=== PATIENT | female | born 1980 | race Caucasian/White ===

== ENCOUNTER → 2017-03-25 | Outpatient (CLI) | payer SELFPAY ==
--- NOTE | 2017-03-25 10:17 | EKG ---
[address] [address] Measurements Intervals [place] Rate: 82 P: 52 WV: 113 QRS: 57 QRSD: 89 T: 62 QT: 364 QTc: 403 Interpretive Statements SINUS RHYTHM WITH SHORT W[place] INTERVAL No previous ECG available for comparison Electronically Signed On 03-25-17 14:17:51 MDT by Prince Woodson [email or web address]
[2017-03-25 11:15] LABS: BASOPHILS # (AUTO) 0.02 10*3/UL; BASOPHILS % (AUTO) 0.5 % (0-1); EOSINOPHILS # (AUTO) 0.06 10*3/UL; EOSINOPHILS % (AUTO) 1.4 % (0-8); HEMATOCRIT 44.4 % (37.0-47.0); HEMOGLOBIN 15.7 g/dL (12.0-16.0); LYMPHOCYTES # (AUTO) 1.24 10*3/uL; MEAN CORPUSCULAR HEMOGLOBIN 27.7 PG (27-31); MEAN CORPUSCULAR HGB CONC 35.4 g/dL (33-37); MEAN CORPUSCULAR VOLUME 78.4 FL (81-99); MEAN PLATELET VOLUME 11.1 FL (7.4-12.2); MONOCYTES # (AUTO) 0.25 10*3/UL (0.3-0.8); MONOCYTES % (AUTO) 5.9 % (5-15); NEUTROPHILS # (AUTO) 2.65 10*3/UL; NEUTROPHILS % (AUTO) 62.7 % (50-80); RBC MORPHOLOGY COMMENT NORMAL MORPHOLOGY (NORM); RED BLOOD COUNT 5.66 10^6/uL (4.20-5.40); WBC MORPHOLOGY COMMENT NORMAL MORPHOLOGY (NORM)
[2017-03-25 11:16] LABS: PLATELET MORPHOLOGY COMMENT SEE COMMENTS (NORM)
[2017-03-25 11:29] LABS: BLOOD UREA NITROGEN 12 mg/dL (7-22); CALCIUM 10.2 mg/dL (8.7-10.7); EST GLOMERULAR FILTRATION > 60 (>60 ml/min/1.73m(2)); SERUM ALBUMIN 4.8 g/dL (3.5-4.8)
== END ==
LOC: MOB EKG 10:02
PROVIDERS: ATTEND Physician Assistant
DX: R42 Dizziness and giddiness (principal); R11.10 Vomiting, unspecified
CPT/HCPCS: 36415; 80053; 83690; 84443; 85025; 93005; 93010

== ENCOUNTER 2017-07-08 10:57 | Inpatient (IN) ==
[2017-07-08 11:37] LABS: BLOOD UREA NITROGEN 14 mg/dL (7-22); LIPASE 87 IU/L (23-300); SERUM ALBUMIN 4.6 g/dL (3.5-4.8)
[2017-07-08 11:41] LABS: BASOPHILS # (AUTO) 0.05 10*3/UL; BASOPHILS % (AUTO) 0.5 % (0-1); EOSINOPHILS # (AUTO) 0.16 10*3/UL; EOSINOPHILS % (AUTO) 1.8 % (0-8); Hematocrit [HCT] 44.9 % (37.0-47.0); Hemoglobin [HGB] 15.3 g/dL (12.0-16.0); LYMPHOCYTES # (AUTO) 1.42 10*3/uL; MEAN CORPUSCULAR HEMOGLOBIN 27.6 PG (27-31); MEAN CORPUSCULAR HGB CONC 34.1 g/dL (33-37); MONOCYTES # (AUTO) 0.48 10*3/UL (0.3-0.8); MONOCYTES % (AUTO) 5.3 % (5-15); NEUTROPHILS # (AUTO) 7.01 10*3/UL; NEUTROPHILS % (AUTO) 76.7 % (50-80); RED BLOOD COUNT 5.54 10^6/uL (4.20-5.40)
[2017-07-08 12:12] LABS: PLATELET MORPHOLOGY COMMENT NORMAL MORPHOLOGY (NORM); RBC MORPHOLOGY COMMENT NORMAL MORPHOLOGY (NORM); WBC MORPHOLOGY COMMENT NORMAL MORPHOLOGY (NORM)
[2017-07-08] MEDS ORDERED: LIDOCAINE W/ SODIUM BICARB 0.5 ML SYR SUBD PRN (14:30)
--- NOTE | 2017-07-08 14:35 | PDOC ---
History and Physical - History of Present Illness Date and Time of Service: 07/08/2017 12:45 PM Chief Complaint: Abdominal pain and nausea 5 days duration. Also diarrhea the last 5 days. History of Present Illness: This is a 37 years old female with medical history significant for history of GERD with history of previous admission in 2011 she had pneumoperitoneum at that time she had expiratory laparotomy however the site of perforation was not found, who presented to the urgent clinic with abdominal pain felt in the periumbilical area varies in intensity associated with nausea but no vomiting. There is also diarrhea she had liquid diarrhea no blood. No fever. Because of all the symptoms she came into the walk-in clinic she had a CT done of the abdomen and this showed partial bowel obstruction and hence the admission. Patient is denying other symptoms there is no chest pain, no shortness of breath no dysuria. She said she never had bowel obstruction before. Past Medical History Medical History: 1. GERD. 2. Previous admission 2011 for pneumoperitoneum had exploratory laparotomy and no site of perforation was found Surgical History: 1. Expiratory lobectomy for pneumoperitoneum in 2011. 2. Cholecystectomy. 3. Bilateral oophorectomy with hysterectomy Family History: Reviewed an Not Pertinent Past Social History: Doesn't smoke, doesn't drink or drugs. Tobacco Use: Never Smoker Substance Use Type: None Alcohol Use: None Medication / Allergies Home Medications: Home Medications Medication Instructions Recorded Confirmed Type Sertraline HCl 1 tab PO DAILY #30 tab 11/11/16 [facility] Pantoprazole Sodium [Protonix] 40 mg PO DAILY #60 tab 03/21/17 [facility] Quetiapine Fumarate [Seroquel] 100 mg PO QHS #60 tab 03/21/17 [facility] Meclizine HCl 25 mg PO TID #15 tab 03/25/17 [facility] Zolpidem Tartrate [Ambien] 1 tab PO DAILY #30 tab 06/24/17 [facility] Allergies/Adverse Reactions: Allergies Allergy/AdvReac Type Severity Reaction Status Date / Time Penicillins Allergy Severe Anaphylaxis Unverified 07/08/17 10:35 Review of Systems - Review of Systems All Systems: Reviewed & No Additional Complaints Except as Stated Exam - General General Appearance: POSITIVE: No Acute Distress, Cooperative, Obese - Head Head Exam: POSITIVE: Normal Inspection, Atraumatic - Eye Eye Exam: POSITIVE: Normal Appearance - ENT ENT Exam: POSITIVE: Normal Exam - Neck Neck Exam: POSITIVE: Normal Inspection - Respiratory Respiratory Exam: POSITIVE: Clear to Auscultation - Bilaterally - Cardiovascular Cardiovascular Exam: POSITIVE: RRR - GI/Abdominal GI/Abdominal Exam: POSITIVE: Soft, No Organomegaly Additional GI/Abdominal Exam Details: Bowel sounds are distant. There is tenderness in the periumbilical area - Rectal Rectal Exam: POSITIVE: Deferred - External Exam: POSITIVE: Deferred Exam: POSITIVE: Deferred - Extremities Extremities Exam: POSITIVE: Normal Inspection - Back Back Exam: POSITIVE: Normal Inspection - Neurological Neurological Exam: POSITIVE: Alert, Oriented x 3, CN II-XII Intact, No Facial Droop, Speech Intact / Clear, Moves All Extremities Equally - Psychiatric Psychiatric Exam: POSITIVE: Normal Affect - Integumentary Integumentary Exam: POSITIVE: Normal Color Results - Labs CBC and BMP: 07/08/17 11:13 07/08/17 11:13 Labs - Last 24 Hours: Laboratory Results 07/08/17 Range/Units 11:13 WBC 9.13 (4.8-10.8) 10^3/uL RBC 5.54 H (4.20-5.40) 10^6/uL Hgb 15.3 (12.0-16.0) g/dL Hct 44.9 (37.0-47.0) % MCV 81.0 (81-99) FL MCH 27.6 (27-31) PG MCHC 34.1 (33-37) g/dL RDW Std Deviation 40.9 (39-50) fL RDW Coeff of Ingrid 14.0 (11.5-14.5) % Plt Count 256 (140-350) 10*3/uL MPV 11.0 (7.4-12.2) FL Immature Gran % (Auto) 0.1 (0-5) % Neut % (Auto) 76.7 (50-80) % Lymph % (Auto) 15.6 (10-50) % [place] % (Auto) 5.3 (5-15) % Eos % (Auto) 1.8 (0-8) % Baso % (Auto) 0.5 (0-1) % Immature Gran # (Auto) 0.01 10*3/UL Neut # (Auto) 7.01 10*3/UL Lymph # (Auto) 1.42 10*3/uL [place] # (Auto) 0.48 (0.3-0.8) 10*3/UL Eos # (Auto) 0.16 10*3/UL Baso # (Auto) 0.05 10*3/UL WBC Morphology Comment Normal morphology (NORM) Plt Morphology Comment Normal morphology (NORM) RBC Morph Comment Normal morphology (NORM) Sodium 138 (135-145) meq/L Potassium 4.2 (3.8-5.2) meq/L Chloride 106 (98-112) meq/L Carbon Dioxide 17 L (23-33) meq/L Anion Gap 15 (5-20) BUN 14 (7-22) mg/dL Creatinine 0.8 (0.50-1.20) mg/dL Estimated GFR > 60 (>60 ml/min/1.73m(2)) BUN/Creatinine Ratio 17.50 (6-20) Glucose 111 H (78-110) mg/dL Calculated Osmolality 287.0 (267-292) mOsm/kg Calcium 10.2 (8.7-10.7) mg/dL Total Bilirubin 0.7 (0.3-1.2) mg/dL AST 40 H (8-39) IU/L ALT 59 H (9-52) IU/L Alkaline Phosphatase 125 (38-126) IU/L C-Reactive Protein 1.0 H (0.0-0.9) mg/dL Total Protein 8.0 (6.1-8.0) g/dL Albumin 4.6 (3.5-4.8) g/dL Globulin 3.4 (2.50-4.10) g/dL Albumin/Globulin Ratio 1.30 (1.3-2.0) mg/g Lipase 87 (23-300) IU/L - Imaging Status: Report Reviewed by Me ( CT of the abdomen showed low to moderate grade partial small bowel obstruction right at the junction betweenThe distal jejunum and the proximal ileum and this more likely secondary to adhesions. There is a trace amount of fluid in the cul-de-sac.) Assessment and Plan - Patient Problems (1) Partial small bowel obstruction Current Visit: Yes Status: Acute Comment: We will put her on IV fluids, antiemetics and pain medications. We will insert NG tube. I will order repeat labs for the morning and x-ray. Dr. Dumont will see her.
[2017-07-08] MEDS ORDERED: MORPHINE SULFATE 2 MG/1 ML IVP PRN (14:36)
--- NOTE | 2017-07-08 14:52 | DI ---
CT ABDOMEN SCAN WITH IV CONTRAST, 07/08/2017 11:16 AM : Clinical History: Abdominal pain. Previous Exam: 10/06/2012. Scans are performed from the lower lung bases through the liver and kidneys with IV contrast. 75 ml o f Isovue 300 was injected IV. No oral or rectal contrast was ordered. The lung bases are clear. There is fluid in the distal esophagus as well as in the stomach and small bowel. The liver is normal. The patient is status post cholecystectomy and the common bile duct measu res 5-6 mm. There is no abnormality of the spleen, pancreas, and adrenal glands. Both kidneys are nor mal in size, shape, position and contour. There is no hydronephrosis or hydroureter. No renal or uret eral calculi are present. There are no abnormal retrocrural or periaortic nodes. No ascites is presen t. READING: Normal CT abdomen scan. CT PELVIS SCAN WITH IV CONTRAST, 07/08/2017 11:16 AM: Clinical History: See above. Previous Exam: 10/06/2012. Scans are performed from just superior to the umbilicus to the symphysis pubis with IV contrast. This is the same bolus of contrast used for the CT scans of the abdomen. Scans through the lower abdomen and pelvis show no masses. There is a small amount of fluid in the cu l-de-sac. The appendix is normal. The small bowel from the duodenum approximately to the junction of the jejunum with the ileum is mildly dilated. In the midline just inferior to the umbilicus is a cheryl p angulation of nondistended small bowel contiguous with some mildly dilated loops of small bowel. Th is probably represents the focus of the projection most likely secondary to an effusion. The distal s mall bowel from this point on is normal. The colon is also normal. There is a small umbilical hernia through which only mesenteric fat has herniated. The patient is status post hysterectomy. Neither ova ry is visualized and presumably the patient is status post bilateral salpingo-oophorectomy. READIN. Low to moderate grade partial small bowel obstruction right at the junction between the distal je junum and the proximal ileum and this most likely secondary to adhesions. There is a trace amount of fluid in the cul-de-sac. 2. Status post hysterectomy and bilateral salpingo-oophorectomy.
[2017-07-08] MEDS: ONDANSETRON 4 MG/2 ML VIAL IVP PRN (15:26)
--- NOTE | 2017-07-08 16:06 | CONSULT ---
Consult Note - Consult Consult Date: 07/08/17 Reason for Consult: PreOp Consulation : General Surgery Requesting Physician: Dr. Call Primary Care Provider: UNKNOWN UNKNOWN - History of Present Illness History of Present Illness: This is a 37-year-old female who has a 4-5 day history of abdominal pain. She feels nauseated but not throwing up. She states that she feels like if she can drop she'll feel a lot better. She has not passed any flatus and last 4 days. States she has not had a real bowel movement in 4 days. She is is passing watery stools. She states that her abdomen is distended Past Medical History Medical History: 1. GERD. 2. Previous admission 2011 for pneumoperitoneum had exploratory laparotomy and no site of perforation was found Surgical History: 1. Expiratory lobectomy for pneumoperitoneum in 2011. 2. Cholecystectomy. 3. Bilateral oophorectomy with hysterectomy Family History: Reviewed an Not Pertinent Past Social History: Doesn't smoke, doesn't drink or drugs. Tobacco Use: Never Smoker Substance Use Type: None Alcohol Use: None Medication / Allergies Home Medications: Home Medications Medication Instructions Recorded Confirmed Type Sertraline HCl 1 tab PO DAILY #30 tab 11/11/16 [facility] Pantoprazole Sodium [Protonix] 40 mg PO DAILY #60 tab 03/21/17 Clinic Quetiapine Fumarate [Seroquel] 100 mg PO QHS #60 tab 03/21/17 Clinic Meclizine HCl 25 mg PO TID #15 tab 03/25/17 Clinic Zolpidem Tartrate [Ambien] 1 tab PO DAILY #30 tab 06/24/17 Clinic Allergies/Adverse Reactions: Allergies Allergy/AdvReac Type Severity Reaction Status Date / Time Penicillins Allergy Severe Anaphylaxis Unverified 07/08/17 10:35 Exam - Vitals Vital Signs: Vital Signs Temperature 97.2 F Temperature Source Temporal Artery Scan Pulse Rate [Pulse Oximeter] 101 Pulse Rate [Apical] 98 Respiratory Rate 18 Blood Pressure [Right Arm] 114/85 Pulse Ox 96 Oxygen Delivery Method Room Air Height 5 ft 1 in Weight 73.301 kg - General General Appearance: POSITIVE: No Acute Distress, Cooperative - Eye Eye Exam: POSITIVE: PERRL, EOMI - GI/Abdominal GI/Abdominal Exam: POSITIVE: Distended Additional GI/Abdominal Exam Details: Patient abdomen is distended she has high-pitched bowel sounds. Abdomen is soft nontender. No rigidity or rebound no peritoneal signs Results - Labs CBC and BMP: 07/08/17 11:13 07/08/17 11:13 Labs - Last 24 Hours: Laboratory Results 07/08/17 Range/Units 11:13 WBC 9.13 (4.8-10.8) 10^3/uL RBC 5.54 H (4.20-5.40) 10^6/uL Hgb 15.3 (12.0-16.0) g/dL Hct 44.9 (37.0-47.0) % MCV 81.0 (81-99) FL MCH 27.6 (27-31) PG MCHC 34.1 (33-37) g/dL RDW Std Deviation 40.9 (39-50) fL RDW Coeff of Ingrid 14.0 (11.5-14.5) % Plt Count 256 (140-350) 10*3/uL MPV 11.0 (7.4-12.2) FL Immature Gran % (Auto) 0.1 (0-5) % Neut % (Auto) 76.7 (50-80) % Lymph % (Auto) 15.6 (10-50) % [place] % (Auto) 5.3 (5-15) % Eos % (Auto) 1.8 (0-8) % Baso % (Auto) 0.5 (0-1) % Immature Gran # (Auto) 0.01 10*3/UL Neut # (Auto) 7.01 10*3/UL Lymph # (Auto) 1.42 10*3/uL [place] # (Auto) 0.48 (0.3-0.8) 10*3/UL Eos # (Auto) 0.16 10*3/UL Baso # (Auto) 0.05 10*3/UL WBC Morphology Comment Normal morphology (NORM) Plt Morphology Comment Normal morphology (NORM) RBC Morph Comment Normal morphology (NORM) Sodium 138 (135-145) meq/L Potassium 4.2 (3.8-5.2) meq/L Chloride 106 (98-112) meq/L Carbon Dioxide 17 L (23-33) meq/L Anion Gap 15 (5-20) BUN 14 (7-22) mg/dL Creatinine 0.8 (0.50-1.20) mg/dL Estimated GFR > 60 (>60 ml/min/1.73m(2)) BUN/Creatinine Ratio 17.50 (6-20) Glucose 111 H (78-110) mg/dL Calculated Osmolality 287.0 (267-292) mOsm/kg Calcium 10.2 (8.7-10.7) mg/dL Total Bilirubin 0.7 (0.3-1.2) mg/dL AST 40 H (8-39) IU/L ALT 59 H (9-52) IU/L Alkaline Phosphatase 125 (38-126) IU/L C-Reactive Protein 1.0 H (0.0-0.9) mg/dL Total Protein 8.0 (6.1-8.0) g/dL Albumin 4.6 (3.5-4.8) g/dL Globulin 3.4 (2.50-4.10) g/dL Albumin/Globulin Ratio 1.30 (1.3-2.0) mg/g Lipase 87 (23-300) IU/L Assessment and Plan - Patient Problems (1) Partial small bowel obstruction Current Visit: Yes Status: Acute - Assessment / Plan Additional Assessment/Plan Details: At this point, I think the patient needs have an NG tube and decompression of the abdomen. There is a high chance that this can resolve on its own. Patient be reevaluated in the morning. She does not have acute surgical abdomen therefore does not have to have emergency surgery.
[2017-07-08] MEDS: HYDROmorphone 2 MG/1 ML IVP PRN ×3 (17:17→23:03)
[2017-07-08] MEDS ORDERED: Metoclopramide Inj 10 MG/2 ML VIAL IVP PRN (17:36)
[2017-07-08] MEDS: Pantoprazole Inj 40 MG in Normal Saline Flush 10 ML IVP SCH (22:12)
[2017-07-09] MEDS: HYDROmorphone 2 MG/1 ML IVP PRN ×3 (05:01→10:09)
[2017-07-09 05:09] LABS: BASOPHILS # (AUTO) 0.02 10*3/UL; BASOPHILS % (AUTO) 0.3 % (0-1); EOSINOPHILS # (AUTO) 0.16 10*3/UL; EOSINOPHILS % (AUTO) 2.5 % (0-8); Hematocrit [HCT] 41.6 % (37.0-47.0); Hemoglobin [HGB] 14.1 g/dL (12.0-16.0); LYMPHOCYTES # (AUTO) 1.32 10*3/uL; MEAN CORPUSCULAR HEMOGLOBIN 28.3 PG (27-31); MEAN CORPUSCULAR HGB CONC 33.9 g/dL (33-37); MEAN CORPUSCULAR VOLUME 83.4 FL (81-99); MEAN PLATELET VOLUME 10.9 FL (7.4-12.2); MONOCYTES # (AUTO) 0.41 10*3/UL (0.3-0.8); MONOCYTES % (AUTO) 6.4 % (5-15); NEUTROPHILS # (AUTO) 4.53 10*3/UL; NEUTROPHILS % (AUTO) 70.1 % (50-80); RED BLOOD COUNT 4.99 10^6/uL (4.20-5.40)
[2017-07-09 05:16] LABS: PLATELET MORPHOLOGY COMMENT NORMAL MORPHOLOGY (NORM); RBC MORPHOLOGY COMMENT NORMAL MORPHOLOGY (NORM); WBC MORPHOLOGY COMMENT NORMAL MORPHOLOGY (NORM)
[2017-07-09 05:22] LABS: BLOOD UREA NITROGEN 11 mg/dL (7-22); BUN/CREATININE RATIO 13.75 (6-20); SERUM ALBUMIN 4.1 g/dL (3.5-4.8)
--- NOTE | 2017-07-09 09:18 | DI ---
HISTORY: Abdominal pain. Obstruction. COMPARISON: 07/08/2017. FINDINGS/IMPRESSION: Flat and upright views of the abdomen are submitted. An enteric tube courses midline with the sidepo rt beyond the gastroesophageal junction and the tip projecting over the left upper quadrant. There i s stool and gas in the distribution of the colon. There are no dilated loops of bowel or air-fluid l evels. No free intraperitoneal air is detected. There are no suspicious calcific densities in the d istribution of the kidneys or renal or collecting system. A phlebolith projects over the left lower pelvis. The lung bases are clear. The cardiomediastinal silhouette is within normal limits. Osseous structures are normal for age. The soft tissues are unremarkable.
[2017-07-09] MEDS: NORMAL SALINE 10 ML SYRINGE FLUSH IVP PRN (10:09)
[2017-07-09] MEDS: ONDANSETRON 4 MG/2 ML VIAL IVP PRN ×2 (10:09→15:48)
[2017-07-09] MEDS ORDERED: Acetaminophen 1000mg Inj 1,000 MG in Premix 1 BAG IV ONE (10:16)
--- NOTE | 2017-07-09 12:27 | PDOC(PROG) ---
Date and Time of Service: 07/10/2017 at 1220 Interval History: Patient is still complaining of abdominal pain. She got nauseated which went down for x-rays but has not thrown up. She is claims she is not passing gas. Objective : Data - Labs CBC and BMP: 07/09/17 04:25 07/09/17 04:25 Labs - Last 24 Hours: Laboratory Results 07/09/17 Range/Units 04:25 WBC 6.45 (4.8-10.8) 10^3/uL RBC 4.99 (4.20-5.40) 10^6/uL Hgb 14.1 (12.0-16.0) g/dL Hct 41.6 (37.0-47.0) % MCV 83.4 (81-99) FL MCH 28.3 (27-31) PG MCHC 33.9 (33-37) g/dL RDW Std Deviation 42.7 (39-50) fL RDW Coeff of Ingrid 14.2 (11.5-14.5) % Plt Count 210 (140-350) 10*3/uL MPV 10.9 (7.4-12.2) FL Immature Gran % (Auto) 0.2 (0-5) % Neut % (Auto) 70.1 (50-80) % Lymph % (Auto) 20.5 (10-50) % [place] % (Auto) 6.4 (5-15) % Eos % (Auto) 2.5 (0-8) % Baso % (Auto) 0.3 (0-1) % Immature Gran # (Auto) 0.01 10*3/UL Neut # (Auto) 4.53 10*3/UL Lymph # (Auto) 1.32 10*3/uL [place] # (Auto) 0.41 (0.3-0.8) 10*3/UL Eos # (Auto) 0.16 10*3/UL Baso # (Auto) 0.02 10*3/UL WBC Morphology Comment Normal morphology (NORM) Plt Morphology Comment Normal morphology (NORM) RBC Morph Comment Normal morphology (NORM) Sodium 142 (135-145) meq/L Potassium 3.9 (3.8-5.2) meq/L Chloride 107 (98-112) meq/L Carbon Dioxide 23 (23-33) meq/L Anion Gap 12 (5-20) BUN 11 (7-22) mg/dL Creatinine 0.8 (0.50-1.20) mg/dL Estimated GFR > 60 (>60 ml/min/1.73m(2)) BUN/Creatinine Ratio 13.75 (6-20) Glucose 85 (78-110) mg/dL Calculated Osmolality 291.0 (267-292) mOsm/kg Calcium 9.3 (8.7-10.7) mg/dL Total Bilirubin 0.8 (0.3-1.2) mg/dL AST 35 (8-39) IU/L ALT 58 H (9-52) IU/L Alkaline Phosphatase 99 (38-126) IU/L Total Protein 7.1 (6.1-8.0) g/dL Albumin 4.1 (3.5-4.8) g/dL Globulin 3.0 (2.50-4.10) g/dL Albumin/Globulin Ratio 1.30 (1.3-2.0) mg/g - Vital Signs Vital Signs and I&O: Vital Signs - Last Taken Temperature 98.2 F 07/09/17 11:19 Pulse Rate 103 H 07/09/17 11:19 Respiratory Rate 16 07/09/17 11:19 Blood Pressure 107/72 07/09/17 11:19 Pulse Ox 99 07/09/17 11:19 Intake and Output (24hr x 4 totals) 07/07/17 07/08/17 07/09/17 07/10/17 05:59 05:59 05:59 05:59 Intake Total 347 Output Total 1125 Balance -778 Objective : Exam - General General Appearance: No Acute Distress, Cooperative - Head Head Exam: Normal Inspection, Normocephalic, Atraumatic - Eye Eye Exam: Normal Appearance, PERRL, EOMI - GI/Abdominal GI/Abdominal Exam: Non Tender, Soft, Distended Assessment and Plan - Patient Problems (1) Partial small bowel obstruction Current Visit: Yes Status: Acute - Assessment / Plan Additional Assessment/Plan Details: We will have Gastrografin placed on the NG tube and do serial x-rays to see if the diagnosis through.
[2017-07-09] MEDS: MORPHINE SULFATE 4 MG/1 ML IVP PRN ×4 (15:45→22:59)
--- NOTE | 2017-07-09 16:26 | PDOC(PROG) ---
Date and Time of Service: [id number], 11 AM Interval History: no chest pain, SOB, nausea or vomiting. still complaints of abdominal pain. wants to try liquids today. Objective : Data - Labs CBC and BMP: 07/09/17 04:25 07/09/17 04:25 Labs - Last 24 Hours: Laboratory Results 07/09/17 Range/Units 04:25 WBC 6.45 (4.8-10.8) 10^3/uL RBC 4.99 (4.20-5.40) 10^6/uL Hgb 14.1 (12.0-16.0) g/dL Hct 41.6 (37.0-47.0) % MCV 83.4 (81-99) FL MCH 28.3 (27-31) PG MCHC 33.9 (33-37) g/dL RDW Std Deviation 42.7 (39-50) fL RDW Coeff of Ingrid 14.2 (11.5-14.5) % Plt Count 210 (140-350) 10*3/uL MPV 10.9 (7.4-12.2) FL Immature Gran % (Auto) 0.2 (0-5) % Neut % (Auto) 70.1 (50-80) % Lymph % (Auto) 20.5 (10-50) % [place] % (Auto) 6.4 (5-15) % Eos % (Auto) 2.5 (0-8) % Baso % (Auto) 0.3 (0-1) % Immature Gran # (Auto) 0.01 10*3/UL Neut # (Auto) 4.53 10*3/UL Lymph # (Auto) 1.32 10*3/uL [place] # (Auto) 0.41 (0.3-0.8) 10*3/UL Eos # (Auto) 0.16 10*3/UL Baso # (Auto) 0.02 10*3/UL WBC Morphology Comment Normal morphology (NORM) Plt Morphology Comment Normal morphology (NORM) RBC Morph Comment Normal morphology (NORM) Sodium 142 (135-145) meq/L Potassium 3.9 (3.8-5.2) meq/L Chloride 107 (98-112) meq/L Carbon Dioxide 23 (23-33) meq/L Anion Gap 12 (5-20) BUN 11 (7-22) mg/dL Creatinine 0.8 (0.50-1.20) mg/dL Estimated GFR > 60 (>60 ml/min/1.73m(2)) BUN/Creatinine Ratio 13.75 (6-20) Glucose 85 (78-110) mg/dL Calculated Osmolality 291.0 (267-292) mOsm/kg Calcium 9.3 (8.7-10.7) mg/dL Total Bilirubin 0.8 (0.3-1.2) mg/dL AST 35 (8-39) IU/L ALT 58 H (9-52) IU/L Alkaline Phosphatase 99 (38-126) IU/L Total Protein 7.1 (6.1-8.0) g/dL Albumin 4.1 (3.5-4.8) g/dL Globulin 3.0 (2.50-4.10) g/dL Albumin/Globulin Ratio 1.30 (1.3-2.0) mg/g - Imaging X-Ray Status: Image Reviewed by Me (KUB exam appears normal with no evidence for obstruction.) Objective : Exam - General General Appearance: No Acute Distress, Cooperative Additional General Exam Details: Vital Signs - Last Taken Temperature 97.3 F 07/09/17 15:51 Pulse Rate 92 07/09/17 15:51 Respiratory Rate 14 07/09/17 15:51 Blood Pressure 101/67 07/09/17 15:51 Pulse Ox 91 07/09/17 15:51 - Eye Eye Exam: No Scleral Icterus - ENT ENT Exam: Mucous Membranes Moist - Respiratory Respiratory Exam: Clear to Auscultation - Bilaterally, Breathing Non Labored - Cardiovascular Cardiovascular Exam: RRR, No Murmur, No Clicks, No Gallops, No Rubs, No JVD - GI/Abdominal GI/Abdominal Exam: Non Tender, Non Distended, Soft, Hypoactive Bowel Sounds - Extremities Extremities Exam: No Clubbing Present, No Edema Present, No Cyanosis Present - Neurological Neurological Exam: Alert, Oriented x 3, No Facial Droop, Speech Intact / Clear, Moves All Extremities Equally Assessment and Plan - Patient Problems (1) Partial small bowel obstruction Current Visit: Yes Status: Acute (2) Dehydration Current Visit: Yes Status: Acute - Assessment / Plan Additional Assessment/Plan Details: continue IV fluids clear liquids/ water discussed with surgery, and we feel it is best to get a gastrograffin study and image small bowel with time to see if contrast goes through check labs tomorrow
--- NOTE | 2017-07-09 16:49 | DI ---
CLINICAL HISTORY: Small bowel obstruction. PREVIOUS EXAM: None at this facility. TECHNIQUE: Four views of the abdomen are obtained. FINDINGS: Images demonstrate contrast within the stomach on the second third and fourth images. Ther e was extension into the duodenal sweep. There is also contrast noted throughout the small bowel. There is no evidence of high-grade spinal ezio wel obstruction. There is air and stool noted within the colon. IMPRESSION: 1. No acute intra-abdominal pathology.
--- NOTE | 2017-07-09 18:24 | DI ---
CLINICAL HISTORY: Small bowel obstruction. PREVIOUS EXAM: Same date 4 hours prior. FINDINGS: Four-hour view after oral administration of contrast demonstrates contrast into and throug h the majority of the colon. There is no evidence of high-grade obstruction. Skeletal structures are unremarkable. IMPRESSION: 1. Advancement of contrast all the way through the colon.
[2017-07-09] MEDS: Pantoprazole Inj 40 MG in Normal Saline Flush 10 ML IVP SCH (20:19)
[2017-07-10] MEDS: MORPHINE SULFATE 4 MG/1 ML IVP PRN (02:56)
[2017-07-10] MEDS ORDERED: Acetaminophen 1000mg Inj 1,000 MG in Premix 1 BAG IV ONE ×2 (03:05→13:32)
[2017-07-10 04:45] LABS: BASOPHILS # (AUTO) 0.02 10*3/UL; BASOPHILS % (AUTO) 0.2 % (0-1); EOSINOPHILS # (AUTO) 0.01 10*3/UL; EOSINOPHILS % (AUTO) 0.1 % (0-8); Hematocrit [HCT] 36.7 % (37.0-47.0); Hemoglobin [HGB] 12.1 g/dL (12.0-16.0); MEAN CORPUSCULAR HEMOGLOBIN 27.7 PG (27-31); MEAN PLATELET VOLUME 10.9 FL (7.4-12.2); MONOCYTES # (AUTO) 0.38 10*3/UL (0.3-0.8); MONOCYTES % (AUTO) 4.1 % (5-15); NEUTROPHILS # (AUTO) 8.13 10*3/UL; NEUTROPHILS % (AUTO) 88.7 % (50-80); RED BLOOD COUNT 4.37 10^6/uL (4.20-5.40)
[2017-07-10 04:52] LABS: BLOOD UREA NITROGEN 7 mg/dL (7-22); MAGNESIUM 1.7 mg/dL (1.6-2.4); SERUM ALBUMIN 3.5 g/dL (3.5-4.8)
[2017-07-10 05:05] LABS: PLATELET MORPHOLOGY COMMENT NORMAL MORPHOLOGY (NORM); RBC MORPHOLOGY COMMENT NORMAL MORPHOLOGY (NORM); WBC MORPHOLOGY COMMENT NORMAL MORPHOLOGY (NORM)
--- NOTE | 2017-07-10 08:09 | DI ---
HISTORY: Possible bowel obstruction. COMPARISON: 07/09/2017. FINDINGS: Contrast is seen filling the large bowel which appears normal in caliber. IMPRESSION: 1. Contrast is seen filling the large bowel which appears normal in caliber.
[2017-07-10] MEDS: NORMAL SALINE 10 ML SYRINGE FLUSH IVP PRN (11:13)
[2017-07-10] MEDS: ONDANSETRON 4 MG/2 ML VIAL IVP PRN (11:13)
[2017-07-10] MEDS ORDERED: ACETAMINOPHEN 325 MG TABLET PO PRN (11:39)
--- NOTE | 2017-07-10 11:43 | PDOC(PROG) ---
Date and Time of Service: 07 10 2017 at 1145 Interval History: Patient is passing gas. Discomfort in abdomen is less Objective : Data - Labs CBC and BMP: 07/10/17 04:00 07/10/17 04:00 Labs - Last 24 Hours: Laboratory Results 07/10/17 Range/Units 04:00 WBC 9.18 (4.8-10.8) 10^3/uL RBC 4.37 (4.20-5.40) 10^6/uL Hgb 12.1 (12.0-16.0) g/dL Hct 36.7 L (37.0-47.0) % MCV 84.0 (81-99) FL MCH 27.7 (27-31) PG MCHC 33.0 (33-37) g/dL RDW Std Deviation 41.5 (39-50) fL RDW Coeff of Ingrid 13.9 (11.5-14.5) % Plt Count 196 (140-350) 10*3/uL MPV 10.9 (7.4-12.2) FL Immature Gran % (Auto) 0.4 (0-5) % Neut % (Auto) 88.7 H (50-80) % Lymph % (Auto) 6.5 L (10-50) % [place] % (Auto) 4.1 L (5-15) % Eos % (Auto) 0.1 (0-8) % Baso % (Auto) 0.2 (0-1) % Immature Gran # (Auto) 0.04 10*3/UL Neut # (Auto) 8.13 10*3/UL Lymph # (Auto) 0.60 10*3/uL [place] # (Auto) 0.38 (0.3-0.8) 10*3/UL Eos # (Auto) 0.01 10*3/UL Baso # (Auto) 0.02 10*3/UL WBC Morphology Comment Normal morphology (NORM) Plt Morphology Comment Normal morphology (NORM) RBC Morph Comment Normal morphology (NORM) Sodium 137 (135-145) meq/L Potassium 4.5 (3.8-5.2) meq/L Chloride 105 (98-112) meq/L Carbon Dioxide 21 L (23-33) meq/L Anion Gap 11 (5-20) BUN 7 (7-22) mg/dL Creatinine 0.7 (0.50-1.20) mg/dL Estimated GFR > 60 (>60 ml/min/1.73m(2)) BUN/Creatinine Ratio 10.00 (6-20) Glucose 90 (78-110) mg/dL Calculated Osmolality 281.0 (267-292) mOsm/kg Lactic Acid 1.1 (0.70-2.10) MMOL/L Calcium 8.9 (8.7-10.7) mg/dL Magnesium 1.7 (1.6-2.4) mg/dL Total Bilirubin 1.0 (0.3-1.2) mg/dL AST 22 (8-39) IU/L ALT 44 (9-52) IU/L Alkaline Phosphatase 83 (38-126) IU/L Total Protein 6.2 (6.1-8.0) g/dL Albumin 3.5 (3.5-4.8) g/dL Globulin 2.7 (2.50-4.10) g/dL Albumin/Globulin Ratio 1.20 L (1.3-2.0) mg/g - Vital Signs Vital Signs and I&O: Vital Signs - Last Taken Temperature 97.8 F 07/10/17 11:10 Pulse Rate 88 07/10/17 11:10 Respiratory Rate 18 07/10/17 11:10 Blood Pressure 115/77 07/10/17 11:10 Pulse Ox 97 07/10/17 11:10 Intake and Output (24hr x 4 totals) 07/08/17 07/09/17 07/10/17 07/11/17 05:59 05:59 05:59 05:59 Intake Total 347 2048 150 Output Total 1125 1200 800 Balance -778 848 -903 Objective : Exam - GI/Abdominal GI/Abdominal Exam: Normal Bowel Sounds, Non Tender, Non Distended, Soft Assessment and Plan - Patient Problems (1) Partial small bowel obstruction Current Visit: Yes Status: Acute - Assessment / Plan Additional Assessment/Plan Details: Patient overall is doing very well. X-ray shows dye goes up into the colon. She has stool in air seen throughout the colon. I think she can advance her diet and switch over to oral medications. Saline lock her IV
[2017-07-10] MEDS ORDERED: Promethazine Tab 25 MG TAB PO PRN (12:51)
[2017-07-10] MEDS ORDERED: Metoclopramide Inj 10 MG/2 ML VIAL IVP ONE (13:31)
--- NOTE | 2017-07-10 14:00 | PDOC(PROG) ---
Date and Time of Service: 07/10/2017, 1359 Interval History: No chest pain, shortness breath, but still complains of nausea and states her abdominal pain is starting to get worse. She is passing gas today. X-ray results with gastric graph and showed extravasation of contrast into the large intestine with no evidence of obstruction. Pain is mostly right sided and upper quadrant. Objective : Data - Labs CBC and BMP: 07/10/17 04:00 07/10/17 04:00 Labs - Last 24 Hours: Laboratory Results 07/10/17 Range/Units 04:00 WBC 9.18 (4.8-10.8) 10^3/uL RBC 4.37 (4.20-5.40) 10^6/uL Hgb 12.1 (12.0-16.0) g/dL Hct 36.7 L (37.0-47.0) % MCV 84.0 (81-99) FL MCH 27.7 (27-31) PG MCHC 33.0 (33-37) g/dL RDW Std Deviation 41.5 (39-50) fL RDW Coeff of Ingrid 13.9 (11.5-14.5) % Plt Count 196 (140-350) 10*3/uL MPV 10.9 (7.4-12.2) FL Immature Gran % (Auto) 0.4 (0-5) % Neut % (Auto) 88.7 H (50-80) % Lymph % (Auto) 6.5 L (10-50) % [place] % (Auto) 4.1 L (5-15) % Eos % (Auto) 0.1 (0-8) % Baso % (Auto) 0.2 (0-1) % Immature Gran # (Auto) 0.04 10*3/UL Neut # (Auto) 8.13 10*3/UL Lymph # (Auto) 0.60 10*3/uL [place] # (Auto) 0.38 (0.3-0.8) 10*3/UL Eos # (Auto) 0.01 10*3/UL Baso # (Auto) 0.02 10*3/UL WBC Morphology Comment Normal morphology (NORM) Plt Morphology Comment Normal morphology (NORM) RBC Morph Comment Normal morphology (NORM) Sodium 137 (135-145) meq/L Potassium 4.5 (3.8-5.2) meq/L Chloride 105 (98-112) meq/L Carbon Dioxide 21 L (23-33) meq/L Anion Gap 11 (5-20) BUN 7 (7-22) mg/dL Creatinine 0.7 (0.50-1.20) mg/dL Estimated GFR > 60 (>60 ml/min/1.73m(2)) BUN/Creatinine Ratio 10.00 (6-20) Glucose 90 (78-110) mg/dL Calculated Osmolality 281.0 (267-292) mOsm/kg Lactic Acid 1.1 (0.70-2.10) MMOL/L Calcium 8.9 (8.7-10.7) mg/dL Magnesium 1.7 (1.6-2.4) mg/dL Total Bilirubin 1.0 (0.3-1.2) mg/dL AST 22 (8-39) IU/L ALT 44 (9-52) IU/L Alkaline Phosphatase 83 (38-126) IU/L Total Protein 6.2 (6.1-8.0) g/dL Albumin 3.5 (3.5-4.8) g/dL Globulin 2.7 (2.50-4.10) g/dL Albumin/Globulin Ratio 1.20 L (1.3-2.0) mg/g Objective : Exam - General General Appearance: No Acute Distress, Cooperative Additional General Exam Details: Vital Signs - Last Taken Temperature 97.8 F 07/10/17 11:10 Pulse Rate 88 07/10/17 11:10 Respiratory Rate 18 07/10/17 11:10 Blood Pressure 115/77 07/10/17 11:10 Pulse Ox 97 07/10/17 11:10 - Eye Eye Exam: No Scleral Icterus - Respiratory Respiratory Exam: Clear to Auscultation - Bilaterally, Breathing Non Labored - Cardiovascular Cardiovascular Exam: RRR, No Murmur, No Clicks, No Gallops, No Rubs, JVD - GI/Abdominal GI/Abdominal Exam: Normal Bowel Sounds, Non Tender, Non Distended, Soft - Extremities Extremities Exam: No Clubbing Present, No Edema Present, No Cyanosis Present - Neurological Neurological Exam: Alert, Oriented x 3, No Facial Droop, Speech Intact / Clear, Moves All Extremities Equally Assessment and Plan - Patient Problems (1) Partial small bowel obstruction Current Visit: Yes Status: Acute (2) Dehydration Current Visit: Yes Status: Acute (3) Depression Current Visit: Yes Status: Acute Qualifiers: Depression Type: unspecified Qualified Description: Depression, unspecified depression type Qualifier Code(s): (F32.9) Major depressive disorder, single episode, unspecified (4) GERD (gastroesophageal reflux disease) Current Visit: Yes Status: Acute Qualifiers: Esophagitis presence: without esophagitis Qualified Description: Gastroesophageal reflux disease without esophagitis Qualifier Code(s): ( K21.9) Gastro-esophageal reflux disease without esophagitis - Assessment / Plan Additional Assessment/Plan Details: I wonder little bit about delayed gastric emptying, so I will trial Reglan. With continued headache, try acetaminophen IV again, and perhaps a dose of steroids to try and break headache cycle. Agree with advance diet. Hold off on meclizine.
[2017-07-10] MEDS ORDERED: MECLIZINE HCL 25 MG PO SCH (15:00)
[2017-07-10] MEDS ORDERED: ZOLPIDEM 10 MG TABLET PO SCH (21:00)
[2017-07-10] MEDS ORDERED: QUEtiapine Tab 100 MG TAB PO SCH (21:00)
[2017-07-11 04:28] VITALS: RESP 18
[2017-07-11] MEDS ORDERED: Oxytocin 20 Units + LR 1,000 ML IV ONE (06:28)
[2017-07-11] MEDS ORDERED: OMEPRAZOLE 20 MG CAPSULE PO SCH (07:00)
[2017-07-11 07:48] VITALS: TEMP 97.8
--- NOTE | 2017-07-11 11:37 | DCSUMMARY ---
Hospitalization Summary Admit Date: 07/08/17 Discharge Date: 07/11/17 Primary Diagnosis:: partial small bowel junction, resolved Hospital Course: This very pleasant 37-year-old female who has depression and a prior history of abdominal surgery. She had pneumoperitoneum that was spontaneous but no evidence of perforated bowel on expiratory laparotomy. This it happened a while ago. She came in with symptoms consistent with small bowel obstruction and was found to have a partial small bowel checked by CT scan and evaluation. Surgery was consulted and an NG tube was placed. The patient was able to resolve her bowel obstruction. Gastrografin was used as well and contrast was seen through the large intestine further proving that there was no evidence of recurrent obstruction after initial admission. Her pain persisted and she was monitored for that, and developed some headaches that were treated with Tylenol and she recovered from that as well. She did not do well with Reglan and felt funny with administration of that. Today, the patient was able to eat cream of wheat and a shake, she has no nausea or vomiting, her pain is resolved, no chest pain and no shortness breath and she wants to go home. No urinary tract infection. Patient grew out lactobacillus but this is a contaminant. He did not have any symptoms of urinary tract infection. Assessment and Plan: 1. As per discharge assessments noted 2. Disposition: Patient is discharged home. 3. Condition on discharge, stable and improved. 4. Diet: regular diet 5. Activities: resume normal activities 6. Follow-Up: 1. See Dr. Cummings in this week 2. 7. Medications at the Time of Discharge: Home Medications Medication Instructions Recorded Confirmed Type Pantoprazole Sodium [Protonix] 40 mg PO DAILY #60 tab 03/21/17 07/08/17 [facility] Quetiapine Fumarate [Seroquel] 100 mg PO QHS #60 tab 03/21/17 07/08/17 [facility] Meclizine HCl 25 mg PO TID #15 tab 03/25/17 07/08/17 [facility] Zolpidem Tartrate [Ambien] 1 tab PO DAILY #30 tab 06/24/17 07/08/17 Clinic 8. Time, care, counseling and coordination of care for this discharge is less than 30 minutes. Exam - Vitals Vital Signs: Vital Signs Temperature 97.8 F Temperature Source Temporal Artery Scan Pulse Rate [Pulse Oximeter] 95 Pulse Rate [Apical] 92 Respiratory Rate 18 Blood Pressure [Right Arm] 109/72 Pulse Ox 97 Oxygen Flow Rate 2 Oxygen Delivery Method Room Air Height 5 ft 1 in Weight 159 lb 3.2 oz - General General Appearance: POSITIVE: No Acute Distress, Cooperative - Eye Eye Exam: POSITIVE: No Scleral Icterus - ENT ENT Exam: POSITIVE: Mucous Membranes Moist - Respiratory Respiratory Exam: POSITIVE: Clear to Auscultation - Bilaterally, Breathing Non Labored - Cardiovascular Cardiovascular Exam: POSITIVE: RRR, No Murmur, No Clicks, No Gallops, No Rubs, No JVD - GI/Abdominal GI/Abdominal Exam: POSITIVE: Normal Bowel Sounds, Non Tender, Non Distended, Soft - Extremities Extremities Exam: POSITIVE: No Clubbing Present, No Edema Present, No Cyanosis Present - Neurological Neurological Exam: POSITIVE: Alert, Oriented x 3, No Facial Droop, Speech Intact / Clear, Moves All Extremities Equally - Psychiatric Psychiatric Exam: POSITIVE: Normal Affect, Normal Mood Data Perinent Studies: Laboratory Results 07/08/17 07/09/17 07/10/17 Range/Units 11:13 04:25 04:00 WBC 9.13 6.45 9.18 (4.8-10.8) 10^3/uL RBC 5.54 H 4.99 4.37 (4.20-5.40) 10^6/uL Hgb 15.3 14.1 12.1 (12.0-16.0) g/dL Hct 44.9 41.6 36.7 L (37.0-47.0) % MCV 81.0 83.4 84.0 (81-99) FL MCH 27.6 28.3 27.7 (27-31) PG MCHC 34.1 33.9 33.0 (33-37) g/dL RDW Std Deviation 40.9 42.7 41.5 (39-50) fL RDW Coeff of Ingrid 14.0 14.2 13.9 (11.5-14.5) % Plt Count 256 210 196 (140-350) 10*3/uL MPV 11.0 10.9 10.9 (7.4-12.2) FL Immature Gran % (Auto) 0.1 0.2 0.4 (0-5) % Neut % (Auto) 76.7 70.1 88.7 H (50-80) % Lymph % (Auto) 15.6 20.5 6.5 L (10-50) % [place] % (Auto) 5.3 6.4 4.1 L (5-15) % Eos % (Auto) 1.8 2.5 0.1 (0-8) % Baso % (Auto) 0.5 0.3 0.2 (0-1) % Immature Gran # (Auto) 0.01 0.01 0.04 10*3/UL Neut # (Auto) 7.01 4.53 8.13 10*3/UL Lymph # (Auto) 1.42 1.32 0.60 10*3/uL [place] # (Auto) 0.48 0.41 0.38 (0.3-0.8) 10*3/UL Eos # (Auto) 0.16 0.16 0.01 10*3/UL Baso # (Auto) 0.05 0.02 0.02 10*3/UL WBC Morphology Comment Normal morphology Normal morphology Normal morphology (NORM) Plt Morphology Comment Normal morphology Normal morphology Normal morphology (NORM) RBC Morph Comment Normal morphology Normal morphology Normal morphology ( NORM) Sodium 138 142 137 (135-145) meq/L Potassium 4.2 3.9 4.5 (3.8-5.2) meq/L Chloride 106 107 105 (98-112) meq/L Carbon Dioxide 17 L 23 21 L (23-33) meq/L Anion Gap 15 12 11 (5-20) BUN 14 11 7 (7-22) mg/dL Creatinine 0.8 0.8 0.7 (0.50-1.20) mg/dL Estimated GFR > 60 > 60 > 60 (>60 ml/min/1.73m(2)) BUN/Creatinine Ratio 17.50 13.75 10.00 (6-20) Glucose 111 H 85 90 (78-110) mg/dL Calculated Osmolality 287.0 291.0 281.0 (267-292) mOsm/kg Lactic Acid 1.1 (0.70-2.10) MMOL/L Calcium 10.2 9.3 8.9 (8.7-10.7) mg/dL Magnesium 1.7 (1.6-2.4) mg/dL Total Bilirubin 0.7 0.8 1.0 (0.3-1.2) mg/dL AST 40 H 35 22 (8-39) IU/L ALT 59 H 58 H 44 (9-52) IU/L Alkaline Phosphatase 125 99 83 (38-126) IU/L C-Reactive Protein 1.0 H (0.0-0.9) mg/dL Total Protein 8.0 7.1 6.2 (6.1-8.0) g/dL Albumin 4.6 4.1 3.5 (3.5-4.8) g/dL Globulin 3.4 3.0 2.7 (2.50-4.10) g/dL Albumin/Globulin Ratio 1.30 1.30 1.20 L (1.3-2.0) mg/g Lipase 87 (23-300) IU/L Patient Problems - Patient Problem List (1) Partial small bowel obstruction Current Visit: Yes Status: Resolved (2) Dehydration Current Visit: Yes Status: Acute (3) Depression Current Visit: Yes Status: Acute Qualifiers: Depression Type: unspecified Qualified Description: Depression, unspecified depression type Qualifier Code(s): (F32.9) Major depressive disorder, single episode, unspecified (4) GERD (gastroesophageal reflux disease) Current Visit: Yes Status: Acute Qualifiers: Esophagitis presence: without esophagitis Qualified Description: Gastroesophageal reflux disease without esophagitis Qualifier Code(s): ( K21.9) Gastro-esophageal reflux disease without esophagitis
[2017-07-13 16:33] LABS: INTERPRETATION SEE COMMENTS (())
== END 2017-07-11 12:02 | disposition home or self-care (01) | DRG 392 ==
LOC: CT 10:57 → MED/SURG 13:59
PROVIDERS: ADMIT Internal Medicine; ATTEND Internal Medicine